=== PATIENT | female | born 2000 | race Caucasian/White ===

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

== ENCOUNTER 2022-01-21 17:56 | Emergency (ER) | payer OTHER ==
[~2022-01-21] VITALS: Ht 160 cm; Wt 89.8 kg
[2022-01-21 17:57] VITALS: BP 135/80
[2022-01-21] MEDS ORDERED: HYDR-3363 (20:21)
[2022-01-21] MEDS ORDERED: ERGO500029 (20:21)
[2022-01-21] MEDS ORDERED: FAMO20TA5 (20:21)
[2022-01-21] MEDS ORDERED: VIEN1TAB (20:21)
[2022-01-21] MEDS ORDERED: FLUO20CA22 (20:21)
== END 2022-01-21 20:22 | disposition home or self-care (01) ==
LOC: M ED 17:56
DX: S63.601A Unspecified sprain of right thumb, initial encounter (principal); W18.30XA Fall on same level, unspecified, initial encounter; Y92.098 Other place in other non-institutional residence as the place of occurrence of the external cause; F91.3 Oppositional defiant disorder; F32.9 Major depressive disorder, single episode, unspecified

== ENCOUNTER → 2022-01-24 | Outpatient (CLI) | payer OTHER ==
[~2022-01-24] MED LIST changes: +ERGO500029; +FAMO20TA5; +FLUO20CA22; +HYDR-3363; +VIEN1TAB
[2022-01-24 15:38] LABS: POTASSIUM SERUM 3.8 MEQ/L (3.5-5.1)
[2022-01-24 17:11] LABS: TOTAL 25(OH) VITAMIN D 24.1 NG/ML (30.0-100.0)
== END ==
LOC: M LAB 14:29
PROVIDERS: ATTEND Physician Assistant
DX: E87.5 Hyperkalemia (principal)

== ENCOUNTER → 2022-02-01 | Outpatient (CLI) | payer OTHER ==
[2022-02-01 12:49] LABS: HCG, SERUM QUALITATIVE NEGATIVE (NEGATIVE)
== END ==
LOC: M LAB 11:32
PROVIDERS: ATTEND Physician Assistant
DX: N92.6 Irregular menstruation, unspecified (principal)

== ENCOUNTER 2022-03-16 17:29 | Emergency (ER) | payer OTHER ==
[~2022-03-16] VITALS: Ht 160 cm; Wt 92.1 kg
[2022-03-16 17:36] VITALS: BP 142/103
[2022-03-16] MEDS ORDERED: TRAZ-252 (17:50)
== END 2022-03-16 22:05 | disposition left against medical advice (07) ==
LOC: EDBD 17:29 → M ED 17:29
DX: R06.02 Shortness of breath (principal); Z53.21 Procedure and treatment not carried out due to patient leaving prior to being seen by health care provider

== ENCOUNTER 2022-06-01 09:20 | Emergency (ER) | payer OTHER ==
[~2022-06-01] VITALS: Ht 160 cm; Wt 92.1 kg
[~2022-06-01 09:20] MED LIST changes: +TRAZ-252
[2022-06-01 09:21] VITALS: BP 130/81
[2022-06-01] MEDS ORDERED: DEPO150I12 IM (09:31)
[2022-06-01 10:13] LABS: BASO # 0.1 10^3/uL (0.0-0.2); BASO % 0.7 % (0.0-1.0); EOS # 0.2 10^3/uL (0.0-0.5); EOS % 2.4 % (0.0-3.0); HEMATOCRIT 43.3 % (36.0-47.0); LYMPH # 1.9 10^3/uL (1.5-5.0); LYMPH % 22.6 % (24.0-44.0); MEAN CORPUSCULAR HEMOGLOBIN 27.7 pg (27.0-33.0); MEAN CORPUSCULAR HGB CONC 32.3 g/dl (32.0-36.5); MEAN CORPUSCULAR VOLUME 85.6 fl (80.0-96.0); MONO # 0.6 10^3/uL (0.0-0.8); MONO % 6.7 % (2.0-8.0); NEUTROPHILS # 5.7 10^3/uL (1.5-8.5); NEUTROPHILS % 67.1 % (36.0-66.0); PLATELET COUNT, AUTOMATED 281 10^3/uL (150-450); RED BLOOD COUNT 5.06 10^6/uL (4.00-5.40); WHITE BLOOD COUNT 8.5 10^3/uL (4.0-10.0)
[2022-06-01 10:39] LABS: ALKALINE PHOSPHATASE 92 U/L (46-116); ALT/SGPT 31 U/L (7.0-40); AST/SGOT 15 U/L (<34); BILIRUBIN,TOTAL 0.4 MG/DL (0.3-1.2); BLOOD UREA NITROGEN 12 MG/DL (9-23); CALCIUM LEVEL 9.7 MG/DL (8.5-10.1); CARBON DIOXIDE LEVEL 21 MMOL/L (20-31); CHLORIDE LEVEL 109 MMOL/L (98-107); CREATININE FOR GFR 0.65 MG/DL (0.55-1.30); GLUCOSE, FASTING 98 MG/DL (60-100); HEPATITIS B SURFACE ANTIBODY POSITIVE (POSITIVE); POTASSIUM SERUM 4.1 MMOL/L (3.5-5.1); SODIUM LEVEL 140 MMOL/L (136-145); TOTAL PROTEIN 7.9 G/DL (5.7-8.2)
[2022-06-01 11:04] LABS: HIV 1&2 SCREEN CENTAUR NEGATIVE (NEGATIVE)
[2022-06-01 11:08] LABS: HCG, SERUM QUALITATIVE NEGATIVE (NEGATIVE)
[2022-06-01 11:12] LABS: HEPATITIS C VIRUS ABY INDEX 0.1 INDEX (<0.8)
[2022-06-01 11:13] LABS: HEPATITIS B SURFACE ANTIGEN NEGATIVE (NEGATIVE)
[2022-06-01] MEDS ORDERED: metroNIDAZOLE (FLAGYL) 500MG TABLET PO ONE (11:15)
[2022-06-01] MEDS ORDERED: DOXY100C81 PO (11:15)
[2022-06-01] MEDS ORDERED: LIDOCAINE 1% SDV 5ML VIAL DILUENT ONE (11:15)
[2022-06-01] MEDS ORDERED: cefTRIAXone 500MG VIAL IM ONE (11:15)
[2022-06-01] MEDS ORDERED: DOXYCYCLINE HYCLATE 100MG TABLET PO ONE (11:15)
== END 2022-06-01 12:35 | disposition home or self-care (01) ==
LOC: M ED 09:20
DX: T76.21XA Adult sexual abuse, suspected, initial encounter (principal); Z79.899 Other long term (current) drug therapy; Z79.3 Long term (current) use of hormonal contraceptives
CPT/HCPCS: 80053; 84703; 85025; 86706; 86780; 86803; 87340; 87389; 96372; 99282; J0696

== ENCOUNTER 2022-07-05 22:15 | Emergency (ER) | payer OTHER ==
[~2022-07-05] VITALS: Ht 160 cm; Wt 92.2 kg
[~2022-07-05 22:15] MED LIST changes: +DEPO150I12 IM; +DOXY100C81 PO
[2022-07-05 22:16] VITALS: BP 127/75
== END 2022-07-06 00:38 | disposition left against medical advice (07) ==
LOC: M ED 22:15
DX: Z53.21 Procedure and treatment not carried out due to patient leaving prior to being seen by health care provider (principal)

== ENCOUNTER 2022-08-16 08:31 | Emergency (ER) | payer OTHER ==
[~2022-08-16] VITALS: Ht 160 cm; Wt 92.8 kg
[2022-08-16 09:53] LABS: HEMATOCRIT 42.7 % (36.0-47.0); HEMOGLOBIN 13.9 g/dl (12.0-15.5); MEAN CORPUSCULAR HEMOGLOBIN 27.9 pg (27.0-33.0); MEAN CORPUSCULAR HGB CONC 32.6 g/dl (32.0-36.5); MEAN CORPUSCULAR VOLUME 85.7 fl (80.0-96.0); PLATELET COUNT, AUTOMATED 196 10^3/uL (150-450); RED BLOOD COUNT 4.98 10^6/uL (4.00-5.40); WHITE BLOOD COUNT 4.6 10^3/uL (4.0-10.0)
[2022-08-16 10:23] LABS: CK-MB VALUE MASS 16.2 NG/ML (<3.6)
[2022-08-16 10:24] LABS: LIPASE 36 U/L (12-53)
[2022-08-16 10:26] LABS: ALBUMIN 3.9 G/DL (3.2-5.2); ALKALINE PHOSPHATASE 98 U/L (46-116); ALT/SGPT 72 U/L (7.0-40); AST/SGOT 53 U/L (<34); BILIRUBIN,DIRECT 0.2 MG/DL (<0.4); BILIRUBIN,TOTAL 0.4 MG/DL (0.3-1.2); BLOOD UREA NITROGEN 12 MG/DL (9-23); CALCIUM LEVEL 8.7 MG/DL (8.5-10.1); CARBON DIOXIDE LEVEL 24 MMOL/L (20-31); CHLORIDE LEVEL 107 MMOL/L (98-107); CPK CREATINE PHOSPHOKINASE 329 U/L (34-145); CREATININE FOR GFR 0.55 MG/DL (0.55-1.30); GLUCOSE, FASTING 103 MG/DL (60-100); HCG, SERUM QUALITATIVE NEGATIVE (NEGATIVE); MB/CK RELATIVE INDEX 4.92 (< OR =4); POTASSIUM SERUM 3.9 MMOL/L (3.5-5.1); SODIUM LEVEL 139 MMOL/L (136-145); TOTAL PROTEIN 7.3 G/DL (5.7-8.2)
[2022-08-16 10:28] LABS: FREE T4 0.97 NG/DL (0.83-1.43)
[2022-08-16 10:47] LABS: INR 0.95; PROTHROMBIN TIME 12.9 SECONDS (12.5-14.5)
[2022-08-16 10:55] LABS: ATYPICAL LYMPH 6 % (0-5); EOSINOPHILS 3 % (0-3); LYMPHOCYTES 23 % (16-44); MONOCYTES 12 % (0-5); NEUTROPHILS 56 % (28-66); PLATELET ESTIMATE NORMAL (NORMAL)
[2022-08-16] MEDS ORDERED: MORPHINE 2 MG/ML 1ML VIAL IV PRN (11:15)
[2022-08-16] MEDS ORDERED: ISOVUE-370 76% 100ML VIAL As Ordered ONE (11:22)
[2022-08-16 11:48] LABS: APPEARANCE, URINE CLOUDY (CLEAR); BACTERIA, URINE AUTO 1+ (NEGATIVE); BILIRUBIN, URINE AUTO NEGATIVE (NEGATIVE); BLOOD, URINE BLOOD NEGATIVE (NEGATIVE); COLOR, URINE YELLOW (YELLOW); GLUCOSE, URINE (UA) AUTO NEGATIVE (NEGATIVE); KETONE, URINE AUTO NEGATIVE (NEGATIVE); LEUKOCYTE ESTERASE, URINE AUTO 2+ (NEGATIVE); MUCUS, URINE SMALL (NEGATIVE); NITRITE, URINE AUTO NEGATIVE (NEGATIVE); PROTEIN, URINE AUTO NEGATIVE (NEGATIVE); RBC, URINE AUTO 1 /HPF (0-3); SPECIFIC GRAVITY URINE AUTO 1.034 (1.002-1.035); SQUAMOUS EPITHELIAL CELL UR AU 13 /HPF (0-6); UROBILINOGEN, URINE AUTO 0.2 mg/dL (0.0-2.0); WBC, URINE AUTO 7 /HPF (0-3)
[2022-08-16 11:52] LABS: CK-MB VALUE MASS 22.6 NG/ML (<3.6)
[2022-08-16 11:54] LABS: MB/CK RELATIVE INDEX 5.97 (< OR =4)
[2022-08-16 12:03] LABS: AMPHETAMINES LEVEL URINE NEGATIVE (NEGATIVE); BARBITURATES URINE NEGATIVE (NEGATIVE); BENZODIAZEPINES URINE NEGATIVE (NEGATIVE); COCAINE METABOLITE URINE NEGATIVE (NEGATIVE); METHADONE URINE NEGATIVE (NEGATIVE); OPIATES URINE NEGATIVE (NEGATIVE); PHENCYCLIDINE URINE NEGATIVE (NEGATIVE)
[2022-08-16 12:06] LABS: PARTIAL THROMBOPLASTIN TIME 27.5 SECONDS (24.8-34.2)
[2022-08-16 12:23] LABS: ERYTHROCYTE SEDIMENTATION RATE 49 mm/hr (0-20)
[2022-08-16 12:50] LABS: CANNABINOIDS URINE POSITIVE (NEGATIVE)
[2022-08-16] MEDS ORDERED: HEPARIN SOD (PORCINE) 5000UNITS/ML 1ML VIAL/SYRINGE IV ONE (13:20)
[2022-08-16] MEDS ORDERED: ASPIRIN 81MG CHEW TABLET PO ONE (13:20)
[2022-08-16] MEDS ORDERED: HEPARIN DRIP 25,000 UNITS in IV 1 EA IV SCH (13:20)
[2022-08-16] MEDS ORDERED: NITROGLYCERIN 2% OINT 1 GM *U/D* PKT TOP ONE (13:20)
[2022-08-16 13:45] VITALS: BP 127/81
[2022-08-16 15:25] VITALS: BP 119/70
== END 2022-08-16 15:34 | disposition short-term general hospital (02) ==
LOC: M ED 08:31
DX: I21.4 Non-ST elevation (NSTEMI) myocardial infarction (principal); F41.9 Anxiety disorder, unspecified; F84.0 Autistic disorder; F32.A Depression, unspecified; F43.10 Post-traumatic stress disorder, unspecified; Z79.899 Other long term (current) drug therapy; Z79.3 Long term (current) use of hormonal contraceptives
CPT/HCPCS: 71046; 71275; 80048; 80076; 80307; 81001; 82550; 82553; 83690; 84439; 84443; 84703; 85025; 85610; 85652; 85730; 86140; 87486; 87581; 87633; 87798; 93005; 93306; 96374; 96375; 99285; J1644; J2270; Q9967

== ENCOUNTER 2022-09-11 09:06 | Emergency (ER) | payer OTHER ==
[~2022-09-11] VITALS: Ht 162.6 cm; Wt 90.2 kg
[2022-09-11] MEDS ORDERED: ALBUTEROL 90 MCG/ACT 8GM HFA INHALER INH ONE (09:25)
[2022-09-11 10:29] LABS: RSV AMPLIFICATION NEGATIVE (NEGATIVE)
[2022-09-11] MEDS ORDERED: NS 1,000 ML IV ONE (10:35)
[2022-09-11] MEDS ORDERED: BENZ200C70 PO (11:22)
[2022-09-11] MEDS ORDERED: AMOX875T2 PO (11:22)
[2022-09-11] MEDS ORDERED: VENTAER INH (11:23)
[2022-09-11] MEDS ORDERED: AUGMENTIN 875 MG TAB PO ONE (11:25)
[2022-09-11 11:53] VITALS: BP 129/85
== END 2022-09-11 11:59 | disposition home or self-care (01) ==
LOC: M ED 09:06
DX: J20.9 Acute bronchitis, unspecified (principal); Z91.040 Latex allergy status; Z91.018 Allergy to other foods; Z91.013 Allergy to seafood

== ENCOUNTER 2022-10-25 20:46 | Emergency (ER) | payer OTHER ==
[~2022-10-25] VITALS: Ht 160 cm; Wt 90.9 kg
[~2022-10-25 20:46] MED LIST changes: +AMOX875T2 PO; +BENZ200C70 PO; +VENTAER INH
[2022-10-25] MEDS ORDERED: ACETAMINOPHEN TAB 650MG DOSE (2X325MG) PO ONE (21:40)
[2022-10-26 02:02] VITALS: BP 122/68
== END 2022-10-26 02:18 | disposition home or self-care (01) ==
LOC: M ED 20:46
DX: S93.401A Sprain of unspecified ligament of right ankle, initial encounter (principal); V18.3XXA Person boarding or alighting a pedal cycle injured in noncollision transport accident, initial encounter; Y92.098 Other place in other non-institutional residence as the place of occurrence of the external cause; F84.0 Autistic disorder; F91.3 Oppositional defiant disorder; F32.A Depression, unspecified; Z91.018 Allergy to other foods; Z91.013 Allergy to seafood; Z91.040 Latex allergy status; Z91.02 Food additives allergy status; Z79.899 Other long term (current) drug therapy; Z79.3 Long term (current) use of hormonal contraceptives

== ENCOUNTER 2022-12-30 14:20 | Emergency (ER) | payer OTHER ==
[~2022-12-30] VITALS: Ht 160 cm; Wt 98.6 kg
[~2022-12-30 14:20] MED LIST changes: -DOXY100C81 PO; +DOXY100C82 PO
[2022-12-30] MEDS ORDERED: TRAZ-252 PO (14:49)
[2022-12-30] MEDS ORDERED: IBUPROFEN 600MG TAB PO ONE (16:15)
[2022-12-30] MEDS ORDERED: IBUP-1022 PO (16:17)
[2022-12-30 16:32] VITALS: BP 109/61; TEMP 98.2; O2SAT 99
== END 2022-12-30 16:34 | disposition home or self-care (01) ==
LOC: M ED 14:20
DX: S93.401A Sprain of unspecified ligament of right ankle, initial encounter (principal); X50.1XXA Overexertion from prolonged static or awkward postures, initial encounter; Y92.480 Sidewalk as the place of occurrence of the external cause; Y93.01 Activity, walking, marching and hiking; F84.0 Autistic disorder; Z91.040 Latex allergy status; Z91.02 Food additives allergy status; Z91.013 Allergy to seafood; Z91.018 Allergy to other foods; Z79.899 Other long term (current) drug therapy

== ENCOUNTER 2023-01-06 20:10 | Emergency (ER) | payer OTHER ==
[~2023-01-06] VITALS: Ht 162.6 cm; Wt 96.0 kg
[~2023-01-06 20:10] MED LIST changes: +IBUP-1022 PO; +TRAZ-252 PO
[2023-01-06 21:31] LABS: BASO # 0.1 10^3/uL (0.0-0.2); BASO % 0.6 % (0.0-1.0); EOS # 0.3 10^3/uL (0.0-0.5); EOS % 2.9 % (0.0-3.0); HEMATOCRIT 42.8 % (36.0-47.0); HEMOGLOBIN 14.2 g/dl (12.0-15.5); LYMPH # 3.9 10^3/uL (1.5-5.0); LYMPH % 39.7 % (24.0-44.0); MEAN CORPUSCULAR HEMOGLOBIN 28.6 pg (27.0-33.0); MEAN CORPUSCULAR HGB CONC 33.2 g/dl (32.0-36.5); MEAN CORPUSCULAR VOLUME 86.1 fl (80.0-96.0); MONO # 0.6 10^3/uL (0.0-0.8); MONO % 6.1 % (2.0-8.0); NEUTROPHILS # 4.9 10^3/uL (1.5-8.5); NEUTROPHILS % 50.5 % (36.0-66.0); PLATELET COUNT, AUTOMATED 271 10^3/uL (150-450); RED BLOOD COUNT 4.97 10^6/uL (4.00-5.40); WHITE BLOOD COUNT 9.8 10^3/uL (4.0-10.0)
[2023-01-06 21:50] LABS: HCG, SERUM QUALITATIVE NEGATIVE (NEGATIVE); LIPASE 41 U/L (12-53)
[2023-01-06 21:52] LABS: ALBUMIN 4.4 G/DL (3.2-5.2); ALKALINE PHOSPHATASE 107 U/L (46-116); ALT/SGPT 40 U/L (7.0-40); AST/SGOT 15 U/L (<34); BILIRUBIN,DIRECT < 0.1 MG/DL (<0.4); BILIRUBIN,TOTAL 0.3 MG/DL (0.3-1.2); BLOOD UREA NITROGEN 12 MG/DL (9-23); CARBON DIOXIDE LEVEL 28 MMOL/L (20-31); CHLORIDE LEVEL 108 MMOL/L (98-107); CREATININE FOR GFR 0.74 MG/DL (0.55-1.30); GLUCOSE, FASTING 90 MG/DL (60-100); POTASSIUM SERUM 4.2 MMOL/L (3.5-5.1); SODIUM LEVEL 146 MMOL/L (136-145); TOTAL PROTEIN 7.8 G/DL (5.7-8.2)
[2023-01-07 05:30] VITALS: BP 113/54; TEMP 97.9; O2SAT 99
== END 2023-01-07 05:55 | disposition home or self-care (01) ==
LOC: M ED 20:10
DX: K62.5 Hemorrhage of anus and rectum (principal); E55.9 Vitamin D deficiency, unspecified; F84.0 Autistic disorder; F99 Mental disorder, not otherwise specified; Z87.891 Personal history of nicotine dependence; Z79.899 Other long term (current) drug therapy; Z91.040 Latex allergy status; Z91.02 Food additives allergy status; Z91.013 Allergy to seafood; Z91.018 Allergy to other foods

== ENCOUNTER 2023-02-01 19:04 | Emergency (ER) | payer OTHER ==
[~2023-02-01] VITALS: Ht 165.1 cm; Wt 94.7 kg
[2023-02-01 19:04] VITALS: BP 132/76; TEMP 97.7; O2SAT 98
== END 2023-02-01 22:40 | disposition left against medical advice (07) ==
LOC: M ED 19:04
DX: Z53.21 Procedure and treatment not carried out due to patient leaving prior to being seen by health care provider (principal)

== ENCOUNTER 2023-07-04 20:47 | Emergency (ER) | payer OTHER ==
[~2023-07-04] VITALS: Ht 162.6 cm; Wt 98.6 kg
[2023-07-04] MEDS ORDERED: ACETAMINOPHEN TAB 650MG DOSE (2X325MG) PO ONE (21:50)
[2023-07-04 21:53] LABS: BASO # 0.1 10^3/uL (0.0-0.2); BASO % 0.4 % (0.0-1.0); EOS # 0.2 10^3/uL (0.0-0.5); EOS % 1.5 % (0.0-3.0); HEMATOCRIT 40.9 % (36.0-47.0); LYMPH # 2.7 10^3/uL (1.5-5.0); MEAN CORPUSCULAR HEMOGLOBIN 28.7 pg (27.0-33.0); MEAN CORPUSCULAR HGB CONC 34.2 g/dl (32.0-36.5); MONO # 0.8 10^3/uL (0.0-0.8); MONO % 6.2 % (2.0-8.0); NEUTROPHILS # 9.8 10^3/uL (1.5-8.5); NEUTROPHILS % 71.5 % (36.0-66.0); PLATELET COUNT, AUTOMATED 272 10^3/uL (150-450); RED BLOOD COUNT 4.87 10^6/uL (4.00-5.40); WHITE BLOOD COUNT 13.6 10^3/uL (4.0-10.0)
[2023-07-04 22:04] LABS: ERYTHROCYTE SEDIMENTATION RATE 47 mm/hr (0-20)
[2023-07-04 22:19] LABS: BLOOD UREA NITROGEN 8 MG/DL (9-23); CALCIUM LEVEL 9.2 MG/DL (8.5-10.1); CARBON DIOXIDE LEVEL 26 MMOL/L (20-31); CHLORIDE LEVEL 105 MMOL/L (98-107); CREATININE FOR GFR 0.72 MG/DL (0.55-1.30); GLOMERULAR FILTRATION RATE > 60.0 (>60); GLUCOSE, FASTING 93 MG/DL (60-100); SODIUM LEVEL 137 MMOL/L (136-145)
[2023-07-04 22:27] LABS: RSV AMPLIFICATION NEGATIVE (NEGATIVE)
[2023-07-05] MEDS ORDERED: CLINDAMYCIN 900 MG in IV 1 EA IV ONE (00:05)
[2023-07-05] MEDS ORDERED: AMOX875T2 PO (00:51)
[2023-07-05 01:35] VITALS: BP 123/72; TEMP 97; O2SAT 98
== END 2023-07-05 01:40 | disposition home or self-care (01) ==
LOC: EDBD 20:47 → M ED 20:47
DX: L05.01 Pilonidal cyst with abscess (principal); F84.0 Autistic disorder; Z79.899 Other long term (current) drug therapy; Z91.013 Allergy to seafood; Z91.018 Allergy to other foods; Z91.040 Latex allergy status; Z91.02 Food additives allergy status; Z91.89 Other specified personal risk factors, not elsewhere classified
CPT/HCPCS: 80048; 84702; 85025; 85652; 86140; 87040; 87070; 87077; 87186; 87205; 87631; 96365; 99284; J0737

== ENCOUNTER 2023-10-24 21:47 | Emergency (ER) | payer OTHER ==
[~2023-10-24] VITALS: Ht 165.1 cm; Wt 100.0 kg
[2023-10-24] MEDS ORDERED: FAMO20TA5 PO (22:05)
[2023-10-24] MEDS: ACETAMINOPHEN 500 MG TAB PO ONE (22:23)
[2023-10-25 01:07] VITALS: BP 128/64; TEMP 99.5; O2SAT 97
[2023-10-25] MEDS ORDERED: IBUP-1022 PO (01:15)
[2023-10-25] MEDS ORDERED: BENZ200C70 PO (01:15)
[2023-10-25] MEDS ORDERED: VENTAER INH (01:20)
== END 2023-10-25 01:35 | disposition home or self-care (01) ==
LOC: M ED 21:47
DX: J06.9 Acute upper respiratory infection, unspecified (principal); F84.0 Autistic disorder; Z91.040 Latex allergy status; Z91.018 Allergy to other foods; Z91.013 Allergy to seafood; Z79.51 Long term (current) use of inhaled steroids; Z79.899 Other long term (current) drug therapy; Z79.1 Long term (current) use of non-steroidal anti-inflammatories (NSAID)

== ENCOUNTER → 2024-05-23 | Outpatient (CLI) | payer OTHER ==
[~2024-05-23] MED LIST changes: +FAMO20TA5 PO; +FLUO-365; -FLUO20CA22
[2024-05-23 14:46] LABS: BASO # 0.1 10^3/uL (0.0-0.2); BASO % 0.7 % (0.0-1.0); EOS # 0.5 10^3/uL (0.0-0.5); HEMATOCRIT 42.1 % (36.0-47.0); HEMOGLOBIN 14.1 g/dl (12.0-15.5); LYMPH # 3.8 10^3/uL (1.5-5.0); LYMPH % 32.3 % (24.0-44.0); MEAN CORPUSCULAR HEMOGLOBIN 28.6 pg (27.0-33.0); MEAN CORPUSCULAR HGB CONC 33.5 g/dl (32.0-36.5); MEAN CORPUSCULAR VOLUME 85.4 fl (80.0-96.0); MONO # 0.6 10^3/uL (0.0-0.8); MONO % 4.9 % (2.0-8.0); NEUTROPHILS # 6.7 10^3/uL (1.5-8.5); NEUTROPHILS % 57.8 % (36.0-66.0); PLATELET COUNT, AUTOMATED 275 10^3/uL (150-450); RED BLOOD COUNT 4.93 10^6/uL (4.00-5.40); WHITE BLOOD COUNT 11.6 10^3/uL (4.0-10.0)
[2024-05-23 15:21] LABS: ALBUMIN 3.9 G/DL (3.2-5.2); ALKALINE PHOSPHATASE 73 U/L (35-104); ALT/SGPT 19 U/L (7.0-40); AST/SGOT < 8 U/L (<34); BILIRUBIN,TOTAL 0.4 MG/DL (0.3-1.2); BLOOD UREA NITROGEN 10 MG/DL (9-23); CARBON DIOXIDE LEVEL 25 MMOL/L (20-31); CHLORIDE LEVEL 104 MMOL/L (98-107); CREATININE FOR GFR 0.64 MG/DL (0.55-1.30); GLOMERULAR FILTRATION RATE > 60.0 (>60); GLUCOSE, FASTING 78 MG/DL (60-100); POTASSIUM SERUM 4.5 MMOL/L (3.5-5.1); SODIUM LEVEL 137 MMOL/L (136-145); TOTAL PROTEIN 7.8 G/DL (5.7-8.2)
[2024-05-23 15:22] LABS: TOTAL 25(OH) VITAMIN D 11.3 NG/ML (20.0-100.0)
[2024-05-23 15:23] LABS: FREE T4 1.15 NG/DL (0.89-1.76); THYROID STIMULATING HORMONE 2.424 uIU/ML (0.55-4.78)
== END ==
LOC: M RAD 11:54
PROVIDERS: ATTEND Physician Assistant Medical
DX: M79.661 Pain in right lower leg (principal); G47.00 Insomnia, unspecified; E55.9 Vitamin D deficiency, unspecified; K21.9 Gastro-esophageal reflux disease without esophagitis

== ENCOUNTER → 2024-07-07 | Outpatient (REF) | payer OTHER ==
[2024-07-07 13:50] LABS: BASO % 0.5 % (0.0-1.0); EOS # 0.2 10^3/uL (0.0-0.5); EOS % 2.6 % (0.0-3.0); HEMATOCRIT 42.5 % (36.0-47.0); HEMOGLOBIN 14.1 g/dl (12.0-15.5); LYMPH # 2.8 10^3/uL (1.5-5.0); LYMPH % 34.8 % (24.0-44.0); MEAN CORPUSCULAR HGB CONC 33.2 g/dl (32.0-36.5); MEAN CORPUSCULAR VOLUME 84.5 fl (80.0-96.0); MONO # 0.4 10^3/uL (0.0-0.8); MONO % 4.9 % (2.0-8.0); NEUTROPHILS # 4.5 10^3/uL (1.5-8.5); NEUTROPHILS % 56.8 % (36.0-66.0); PLATELET COUNT, AUTOMATED 269 10^3/uL (150-450); RED BLOOD COUNT 5.03 10^6/uL (4.00-5.40); WHITE BLOOD COUNT 7.9 10^3/uL (4.0-10.0)
== END ==
LOC: M SFHCCAPE 09:26
PROVIDERS: ATTEND Physician Assistant Medical
DX: D72.829 Elevated white blood cell count, unspecified (principal)

== ENCOUNTER 2025-01-07 03:22 | Emergency (ER) | payer OTHER ==
[~2025-01-07] VITALS: Ht 160 cm; Wt 101.2 kg
[~2025-01-07 03:22] MED LIST changes: +DOXY-442 PO; -DOXY100C82 PO
[2025-01-07] MEDS ORDERED: FLUC150T9 PO (06:54)
[2025-01-07] MEDS ORDERED: METR-265 PO (06:54)
[2025-01-07 08:13] VITALS: BP 134/83; TEMP 97.6; O2SAT 96
== END 2025-01-07 08:15 | disposition home or self-care (01) ==
LOC: M ED 03:22
DX: T76.21XA Adult sexual abuse, suspected, initial encounter (principal); B37.31 Acute candidiasis of vulva and vagina; K21.9 Gastro-esophageal reflux disease without esophagitis; J45.909 Unspecified asthma, uncomplicated; F17.210 Nicotine dependence, cigarettes, uncomplicated; Z91.040 Latex allergy status; Z91.013 Allergy to seafood; Z91.018 Allergy to other foods; Z79.51 Long term (current) use of inhaled steroids; Z79.1 Long term (current) use of non-steroidal anti-inflammatories (NSAID); Z79.899 Other long term (current) drug therapy